=== PATIENT | female | born 1980 | race Caucasian/White ===

== ENCOUNTER 2023-12-25 14:13 | Outpatient (REF) | payer BC, SELFPAY ==
[2023-12-25 16:30] LABS: Ferritin 117 ng/mL (10-250)
== END 2023-12-25 14:14 | disposition home or self-care (01) ==
LOC: HO.BBR 14:13
PROVIDERS: PCP Internal Medicine; Visit Provider Internal Medicine Gastroenterology
DX: E83.110 Hereditary hemochromatosis (principal)
CPT/HCPCS: 36415; 82728

== ENCOUNTER 2024-03-25 15:02 | Outpatient (REF) | payer BC, SELFPAY ==
[2024-03-25 16:52] LABS: Ferritin 53 ng/mL (10-250)
== END 2024-03-25 15:03 | disposition home or self-care (01) ==
LOC: HO.BBR 15:02
PROVIDERS: PCP Internal Medicine; Visit Provider Internal Medicine Gastroenterology
DX: E83.110 Hereditary hemochromatosis (principal)
CPT/HCPCS: 36415; 82728

== ENCOUNTER 2024-06-24 15:08 | Outpatient (REF) | payer BC, SELFPAY ==
[2024-06-24 17:18] LABS: Ferritin 25 ng/mL (10-250)
== END 2024-06-24 15:09 | disposition home or self-care (01) ==
LOC: HO.BBR 15:08
PROVIDERS: PCP Internal Medicine; Visit Provider Internal Medicine Gastroenterology
DX: E83.110 Hereditary hemochromatosis (principal)
CPT/HCPCS: 36415; 82728